=== PATIENT | female | born 1960 | race African-American/Black ===

== ENCOUNTER 2018-05-24 10:10 | Observation (INO) | payer OTHER ==
[2018-05-24] MEDS ORDERED: Albuterol Sulfate 2.5 mg/3 ml Neb ONE (10:37)
[2018-05-24 10:54] LABS: #Eosinphils 0.1 thou/uL (0.0-0.7); #Lymphocytes 1.3 thou/uL (1.20-3.40); #Monocytes 1.3 thou/uL (0.11-0.59); #Neutrophils 10.1 thou/uL (1.40-6.50); %Basophils 0.1 % (0.0-1.0); %Neutrophils 78.9 % (42.0-75.0); Hemoglobin 12.6 g/dL (12.0-16.0); Mean Corpuscular HGB CONC 30.1 g/dL (32.0-36.0); Mean Corpuscular Hemoglobin 31.3 pg (27.0-31.0); Mean Platelet Volume 7.9 fL (7.4-10.4); Platelet Count 441 thou/uL (130-400); RBC Distribution Width 12.8 % (11.5-14.5); Red Blood Cell (RBC) Count 4.02 mill/uL (4.20-5.40); White Blood Cell (WBC) Count 12.7 thou/uL (4.8-10.8)
[2018-05-24 11:12] LABS: ALT (SGPT) 40 U/L (8-55); AST (SGOT) 44 U/L (5-34); Albumin 3.1 g/dL (3.5-5.0); Alkaline Phosphatase 136 U/L (40-150); BUN (Urea Nitrogen) 10 mg/dL (9.8-20.1); Calc. Creatinine Clearance 0 mL/min (70-130); Calcium 10.2 mg/dL (7.8-10.44); Estimated GFR-MDRD Greater than 90; Globulin 5.2 g/dL (2.4-3.5); Glucose 114 mg/dL (70-105); Protein, Total 8.3 g/dL (6.0-8.3)
[2018-05-24 11:13] LABS: Band 16 % (5-11); Lymphocytes 8 % (21-51); MDiff Complete? YES; Monocytes 6 % (0-10); Myelocyte 1 % (0-0); Neutrophil 69 % (42-75); PLT Morphology Comment Appears Increased; Toxic Granulation SLIGHT
[2018-05-24 11:23] LABS: Anion Gap 19 mmol/L (10-20); Carbon Dioxide 31 mmol/L (22-29); Chloride 94 mmol/L (98-107); Potassium 3.7 mmol/L (3.5-5.1); Sodium 140 mmol/L (136-145)
[2018-05-24] MEDS ORDERED: Magnesium 2 GM/50 ML BAG (IN WATER) ONE (11:25)
[2018-05-24] MEDS ORDERED: cefTRIAXone\\ROCEPHIN 1 GM VIAL ONE (12:00)
[2018-05-24] MEDS ORDERED: Azithromycin 250 MG TAB ONE (12:00)
--- NOTE | 2018-05-24 12:21 | RAD ---
CHEST ONE VIEW: HISTORY: Dyspnea. COMPARISON: Chest radiograph from 08/12/2014 FINDINGS: There are extensive air space opacities, which are somewhat nodular in appearance throughout the lung s. This is more confluent in the lung bases. No pneumothorax. No large effusion. IMPRESSION: Extensive air space opacities throughout the lungs, worse in the lower lobes, concerning for developi ng bronchopneumonia. Followup after treatment recommended. POS: BRADEN
--- NOTE | 2018-05-24 12:49 | PDOC.FPRHP ---
- History of Present Illness Chief Complaint: SOB History of Present Illness: 57 yo AAF with PMH of severe persistent asthma presenting with worsening SOB and productive cough over the last few days. Pt notes a sick contact with a niece who was told she has pneumonia over the weekend. Pt reports subjective fevers, chills, cough productive of white sputum, wheezing, chest tightness and increased work of breathing. Pt tried using an entire albuterol inhaler over the last 2 days with no improvement in symptoms. Pt has a hx of hospitalizations for asthma exacerbations in the past. No history of requiring intubation. Pt denies CP, abdominal pain, NVD, dysuria, rash, or recent travel. ED Course: Rocephin 1g, Azithromycin 500 mg, Mg sulfate 2g, NS 500 CC, Albuterol x1hr - Allergies/Adverse Reactions Allergies Allergy/AdvReac Type Severity Reaction Status Date / Time fluticasone propionate Allergy Verified 08/12/14 10:13 [From Flonase] - Home Medications Comments: Montelukast, HCTZ, Proventil, Advair - History PMHx: 1. Severe persistent asthma on 2L O2 via NC chronically 2. EDUARDO 3. OA 4. HTN 5. Restless leg syndrome PSHx: 1. CS x3 FHx: Noncontributory Social: Denies tobacco, EtOH, or illicit drug use. and lives in [place]. - Review of Systems General: reports: fever/chills, night sweats. denies: weight/appetite/sleep changes Respiratory: reports: cough, congestion, shortness of breath, exercise intolerance Cardiovascular: denies: chest pain, palpitation, orthopnea Gastrointestinal: denies: nausea, vomiting, diarrhea, abdominal pain Genitourinary: denies: dysuria, polyuria Skin: denies: rashes Musculoskeletal: denies: pain, arthritis/arthralgias Neurological: denies: syncope, seizure Psychological: denies: anxiety, depression - Vital signs BP: 132/80 HR: 132 RR: 30 Tmax: 98.6 oral Pox: 100% on 3L Wt: 64kg - Physical Exam Constitutional: NAD HEENT: normocephalic and atraumatic, EOMI, conjunctiva clear Neck: supple, no JVD Chest: no-tender to palpation Heart: normal S1/S2 (tachycardic, normal rhythm), pulses present Lungs: other (shallow increased respiratory effort, coarse inspiratory breath sounds all [place], diffuse BL expiratory wheezes with prolonged respiratory effort, no retractions) Abdomen: soft, non-tender, bowel sounds present Musculoskeletal: normal structure, ROM grossly normal Neurological: no focal deficit Skin: no rash/lesions, no jaundice Psychiatric: normal mood and affect, good judgment and insight FMR H&P: Results - Labs Result Diagrams: 05/24/18 10:34 05/24/18 10:34 Lab results: WBC 12.7 thou/uL (4.8-10.8) H 05/24/18 10:34 Hgb 12.6 g/dL (12.0-16.0) 05/24/18 10:34 Hct 41.9 % (36.0-47.0) 05/24/18 10:34 MCV 104.0 fL (78.0-98.0) H 05/24/18 10:34 Plt Count 441 thou/uL (130-400) H 05/24/18 10:34 Neutrophils % 78.9 % (42.0-75.0) H 05/24/18 10:34 Band Neuts % (Manual) 16 % (5-11) H 05/24/18 10:34 Sodium 140 mmol/L (136-145) 05/24/18 10:34 Potassium 3.7 mmol/L (3.5-5.1) 05/24/18 10:34 Chloride 94 mmol/L (98-107) L 05/24/18 10:34 Carbon Dioxide 31 mmol/L (22-29) H 05/24/18 10:34 BUN 10 mg/dL (9.8-20.1) 05/24/18 10:34 Creatinine 0.68 mg/dL (0.6-1.1) 05/24/18 10:34 Glucose 114 mg/dL (70-105) H 05/24/18 10:34 Calcium 10.2 mg/dL (7.8-10.44) 05/24/18 10:34 Total Bilirubin 1.0 mg/dL (0.2-1.2) 05/24/18 10:34 AST 44 U/L (5-34) H 05/24/18 10:34 ALT 40 U/L (8-55) 05/24/18 10:34 Alkaline Phosphatase 136 U/L (40-150) 05/24/18 10:34 Serum Total Protein 8.3 g/dL (6.0-8.3) 05/24/18 10:34 Albumin 3.1 g/dL (3.5-5.0) L 05/24/18 10:34 - EKG Interpretation EKG: Sinus tachycardia, no ST changes - Radiology Interpretation Chest x-ray Status: image reviewed by me, report reviewed by me (bilateral air space opacities consistent with viral PNA) FMR H&P: A/P - Problem List (1) Asthma exacerbation Current Visit: Yes Status: Acute Code(s): J45.901 - UNSPECIFIED ASTHMA WITH (ACUTE) EXACERBATION Qualifiers: Asthma severity: severe Asthma persistence: persistent Qualified Code(s) : J45.51 - Severe persistent asthma with (acute) exacerbation Assessment and Plan: -Pt presents with worsening cough, SOB, and wheezing consistent with asthma exacerbation likely 2/2 PNA with positive sick contacts. -Bilateral CXR appearance is more consistent with viral PNA and pt only presents with mild leukocytosis. -Pt has been afebrile and tachycardia is likely due to prolonged nebulized breathing treatment in ED. -Pt does not appear septic at this time but will obtain procalcitonin to determine if bacterial etiology is more likely and pt needs to be continued on abx. Pt received Rocephin and Azithromycin in ER. -Admit pt to telemetry observation and continue duonebs q4h with albuterol q2h PRN. Continue baseline oxygen requirement of 2L via NC. Administer Solumedrol 125 mg now and resume prednisone 40 mg in AM. -IVF resuscitation with LR@125 -Flu swab. -Repeat CBC in AM. FULL code PPx: Lovenox for VTE, no GI indicated. (2) Hypovolemia Current Visit: Yes Status: Acute Code(s): E86.1 - HYPOVOLEMIA Assessment and Plan: -IVF per above. - Plan Disposition/LOS: Admit to observation for anticipated length of stay less than two midnights, pending clinical course. Attending Addendum - Attending Addendum Date/Time: 05/24/18 9098 I personally evaluated the patient and discussed the management with Dr. Leiva. I agree with the History, Examination, Assessment and Plan documented above with any addition or exceptions noted below. Patient with history of asthma on O2 2L by CT chronically here for worsening SOB and new sputum production in setting of positive sick contact. She received large amounts of albuterol and Mg in ER and is feeling much improved. She is satting 98% on her home O2 requirement. HR 138 but likely 2/2 beta agonist effect. Her lungs have diffuse course breath sounds with expiratory wheezes and rhonchi with decreased air entry b/l. CXR consistent with patchy and diffuse process. Patient to be admitted for Acute asthma exacerbation without worsening of her chronic hypoxic respiratory failure. Continue nebs, steroids, adjust outpatient meds as needed. Continue O2 supplemenation as needed. Checking PCT to see if there is need for continued abx therapy. Check flu swab. IVF hydrate. Very low suspicion for sepsis at this time.
[2018-05-24] MEDS ORDERED: Ondansetron PF 4 MG/2 ML Vial IVP PRN (13:56)
[2018-05-24] MEDS ORDERED: Ondansetron ODT 4 MG TAB SL PRN (13:56)
[2018-05-24] MEDS ORDERED: Acetaminophen 325 MG TAB PO PRN ×2 (13:56→14:12)
[2018-05-24] MEDS ORDERED: Lactated Ringer's 1,000 ML IV SCH (14:00)
[2018-05-24] MEDS ORDERED: Albuterol Sulfate 2.5 mg/3 ml Neb NEB PRN (14:12)
[2018-05-24] MEDS ORDERED: Ondansetron ODT 4 MG TAB PO PRN (14:12)
[2018-05-24] MEDS ORDERED: methylPREDNISolone Sod Succ/PF 125 MG/2 ML VIAL IVP SCH (14:15)
[2018-05-24] MEDS: Lactated Ringer's 1,000 ML IV SCH ×2 (14:32→22:40)
[2018-05-24 14:54] VITALS: BMI 26.0
[2018-05-24] MEDS ORDERED: Prevnar 13-Val Conj/PF 0.5 ML SYRINGE IM ONE (15:00)
[2018-05-24 17:23] LABS: Amphetamine Not Detected (NotDetected); Barbiturates Screen Not Detected (NotDetected); Benzodiazepine Screen Not Detected (NotDetected); Cocaine Metabolite Screen Not Detected (NotDetected); Medtox Control Line Valid? VALID (VALID); Medtox Reader # READER 1; Methadone Not Detected (NotDetected); Methamphetamine Not Detected (NotDetected); Opiate Screen Not Detected (NotDetected); Oxycodone Screen Not Detected (NotDetected); Phencyclidine (PCP) Not Detected (NotDetected); THC/Cannabinoid Screen Not Detected (NotDetected); Tricyclic Screen Not Detected (NotDetected)
[2018-05-24] MEDS: Guaifenesin DM 100-10/5 ML UDCUP PO PRN (20:43)
[2018-05-24] MEDS: Montelukast Sodium 10 mg Tablet PO SCH (20:44)
[2018-05-25 05:28] LABS: #Eosinphils 0.2 thou/uL (0.0-0.7); #Lymphocytes 1.1 thou/uL (1.20-3.40); #Monocytes 0.9 thou/uL (0.11-0.59); #Neutrophils 7.6 thou/uL (1.40-6.50); %Basophils 0.1 % (0.0-1.0); %Eosinophils 1.9 % (0.0-10.0); %Monocytes 9.1 % (0.0-10.0); Hemoglobin 10.6 g/dL (12.0-16.0); Mean Corpuscular HGB CONC 30.4 g/dL (32.0-36.0); Mean Corpuscular Hemoglobin 31.1 pg (27.0-31.0); Mean Platelet Volume 7.5 fL (7.4-10.4); Platelet Count 414 thou/uL (130-400); White Blood Cell (WBC) Count 9.7 thou/uL (4.8-10.8)
--- NOTE | 2018-05-25 06:19 | PDOC.FM ---
- Subjective Subjective: Pt reports feeling better from yesterday, mildly SOB, chest tightness improved. Doesn't quite feel back to baseline. - Objective MAR Reviewed: Yes Vital Signs & Weight: Vital Signs (12 hours) Temp Pulse Resp BP Pulse Ox 05/25/18 04:00 97.6 F 107 H 20 130/78 93 L 05/25/18 03:05 94 L 05/25/18 02:39 16 05/24/18 22:17 106 H 16 05/24/18 19:58 97.8 F 117 H 20 134/91 H 94 L 05/24/18 18:20 116 H 12 93 L Weight Weight 65.907 kg I&O: 05/23/18 05/24/18 05/25/18 06:59 06:59 06:59 Intake Total 2465 Output Total 200 Balance 2265 Result Diagrams: 05/25/18 05:06 05/25/18 05:06 <Krystina Chris - Last Filed: 05/25/18 08:54> - Objective Vital Signs & Weight: Vital Signs (12 hours) Temp Pulse Resp BP Pulse Ox 05/25/18 08:49 92 L 05/25/18 08:43 97.7 F 110 H 22 H 134/84 86 L 05/25/18 06:39 117 H 16 92 L 05/25/18 04:00 97.6 F 107 H 20 130/78 93 L 05/25/18 03:05 94 L 05/25/18 02:39 16 Weight Weight 65.907 kg I&O: 05/24/18 05/25/18 05/26/18 06:59 06:59 06:59 Intake Total 2465 Output Total 200 Balance 2265 Result Diagrams: 05/25/18 05:06 05/25/18 05:06 <Brandon Lewis - Last Filed: 05/25/18 11:31> Phys Exam - Physical Examination Constitutional: NAD HEENT: PERRLA, moist MMs rhonchi in b/l lower lungs, dec breath sounds Cardiovascular: RRR, no significant murmur Gastrointestinal: soft, non-tender, no distention Musculoskeletal: no edema, pulses present Neurological: moves all 4 limbs Psychiatric: normal affect, A&O x 3 Skin: no rash, normal turgor <Krystina Chris - Last Filed: 05/25/18 08:54> Dx/Plan (1) Asthma exacerbation Code(s): J45.901 - UNSPECIFIED ASTHMA WITH (ACUTE) EXACERBATION Status: Acute Qualifiers: Asthma severity: severe Asthma persistence: persistent Qualified Code(s) : J45.51 - Severe persistent asthma with (acute) exacerbation (2) Hypertension Code(s): I10 - ESSENTIAL (PRIMARY) HYPERTENSION Status: Acute - Plan Plan: 47 yo F with severe, persistent asthma here with asthma exacerbation Asthma exacerbation 2/2 viral pneumonia -CXR consistent with viral more than bacterial etiology. Also procal 0.18 supporting this. No need to continue abx -After overnight obs, sepsis criteria not met-white count resolved, afebrile , not tachypneic -Non-hypoxic on 3L, will wean to home 2L as tolerated -Space out duoneb frequency to q6hr Chronic, severe, persistent asthma -continue home meds -will verify outpt meds to make sure appropriate upon d/c Chronic hypertension -resume home meds Hypovolemia, RESOLVED -Can d/c IVF, continue oral hydration dvt ppx: lovenox dispo: If able to wean to home O2 @2L can d/c home today Discussed with Dr. Lewis <Krystina Chris - Last Filed: 05/25/18 08:54> (1) Asthma exacerbation Code(s): J45.901 - UNSPECIFIED ASTHMA WITH (ACUTE) EXACERBATION Status: Acute Qualifiers: Asthma severity: severe Asthma persistence: persistent Qualified Code(s) : J45.51 - Severe persistent asthma with (acute) exacerbation (2) Hypovolemia Code(s): E86.1 - HYPOVOLEMIA Status: Acute <Brandon Lewis - Last Filed: 05/25/18 11:31> Attending Addendum - Attending Addendum Date/Time: 05/25/18 1130 I personally evaluated the patient and discussed the management with Dr. Chris. I agree with the History, Examination, Assessment and Plan documented above with any addition or exceptions noted below. Patient improved. Feels near baseline but not quite. Continue nebs, steroids for asthma exacerbation in likely viral PNA setting. PCT reassuring of no bacterial etiology. On baseline O2 requirement. Consider home today or tomorrow depending on clinical course. <Brandon Lewis - Last Filed: 05/25/18 11:31>
[2018-05-25] MEDS: Lactated Ringer's 1,000 ML IV SCH ×3 (07:07→23:33)
[2018-05-25 07:41] LABS: Anion Gap 11 mmol/L (10-20); BUN (Urea Nitrogen) 8 mg/dL (9.8-20.1); Calc. Creatinine Clearance 111 mL/min (70-130); Calcium 9.3 mg/dL (7.8-10.44); Carbon Dioxide 34 mmol/L (22-29); Chloride 97 mmol/L (98-107); Estimated GFR-MDRD Greater than 90; Glucose 99 mg/dL (70-105); Potassium 3.5 mmol/L (3.5-5.1); Sodium 138 mmol/L (136-145)
[2018-05-25] MEDS: predniSONE 20 MG TAB PO SCH (08:35)
[2018-05-25] MEDS: Enoxaparin Sodium 40 MG/0.4 ML SYRINGE SC SCH (08:36)
[2018-05-25] MEDS: Hydrochlorothiazide 25 MG TAB PO SCH (08:36)
[2018-05-25] MEDS: Guaifenesin DM 100-10/5 ML UDCUP PO PRN ×3 (08:36→20:12)
[2018-05-25] MEDS: Mometasone/Formoterol 120 PUFF INHALER INH SCH (18:41)
[2018-05-25] MEDS: Montelukast Sodium 10 mg Tablet PO SCH (20:11)
[2018-05-26 05:29] LABS: #Eosinphils 0.1 thou/uL (0.0-0.7); #Lymphocytes 1.3 thou/uL (1.20-3.40); #Monocytes 0.7 thou/uL (0.11-0.59); #Neutrophils 5.6 thou/uL (1.40-6.50); %Basophils 0.6 % (0.0-1.0); %Eosinophils 1.4 % (0.0-10.0); %Lymphocytes 16.9 % (21.0-51.0); %Monocytes 8.6 % (0.0-10.0); %Neutrophils 72.5 % (42.0-75.0); Mean Corpuscular HGB CONC 31.1 g/dL (32.0-36.0); Mean Corpuscular Hemoglobin 31.4 pg (27.0-31.0); Mean Platelet Volume 7.4 fL (7.4-10.4); Platelet Count 448 thou/uL (130-400); RBC Distribution Width 12.8 % (11.5-14.5); Red Blood Cell (RBC) Count 3.19 mill/uL (4.20-5.40); White Blood Cell (WBC) Count 7.7 thou/uL (4.8-10.8)
--- NOTE | 2018-05-26 06:18 | PDOC.FM ---
- Subjective Subjective: No acute events overnight. Patient denies SOB, chest tightness. Was able to walk around room without problems yesterday, reports feeling back to baseline and says she feels ready to go home. - Objective MAR Reviewed: Yes Vital Signs & Weight: Vital Signs (12 hours) Temp Pulse Resp BP BP Pulse Ox 05/26/18 04:00 97.8 F 97 22 H 168/77 H 94 L 05/26/18 00:23 100 14 05/25/18 20:00 98.2 F 105 H 18 143/78 H 92 L 05/25/18 19:47 98.2 F 105 H 18 143/78 H 92 L 05/25/18 18:31 115 H 16 Weight Weight 69.173 kg I&O: 05/24/18 05/25/18 05/26/18 06:59 06:59 06:59 Intake Total 2465 3678 Output Total 200 2100 Balance 2265 1578 Result Diagrams: 05/26/18 04:55 05/26/18 04:55 <Krystina Chris - Last Filed: 05/26/18 08:39> - Objective Vital Signs & Weight: Vital Signs (12 hours) Temp Pulse Resp BP Pulse Ox 05/26/18 07:20 104 H 24 H 159/88 H 05/26/18 06:27 90 L 05/26/18 06:26 102 H 20 90 L 05/26/18 06:25 102 H 20 90 L 05/26/18 04:00 97.8 F 97 22 H 168/77 H 94 L 05/26/18 00:23 100 14 Weight Weight 69.173 kg I&O: 05/25/18 05/26/18 05/27/18 06:59 06:59 06:59 Intake Total 2465 3678 Output Total 200 2100 Balance 2265 1578 Result Diagrams: 05/26/18 04:55 05/26/18 04:55 <Brandon Lewis - Last Filed: 05/26/18 10:56> Phys Exam - Physical Examination Constitutional: NAD Neck: full ROM diffuse rhonchi, dec. breath sounds Cardiovascular: RRR, no significant murmur Gastrointestinal: soft, non-tender, no distention Neurological: non-focal, moves all 4 limbs Psychiatric: normal affect, A&O x 3 Skin: no rash, normal turgor <Krystina Chris - Last Filed: 05/26/18 08:39> Dx/Plan (1) Asthma exacerbation Code(s): J45.901 - UNSPECIFIED ASTHMA WITH (ACUTE) EXACERBATION Status: Acute Qualifiers: Asthma severity: severe Asthma persistence: persistent Qualified Code(s) : J45.51 - Severe persistent asthma with (acute) exacerbation (2) Hypertension Code(s): I10 - ESSENTIAL (PRIMARY) HYPERTENSION Status: Acute (3) Hypokalemia Code(s): E87.6 - HYPOKALEMIA Status: Acute - Plan Plan: 47 yo F with severe, persistent asthma here with asthma exacerbation Asthma exacerbation 2/2 viral pneumonia -Much improved today, on 3L of O2, duonebs q6hr -Continue steroid course to completion -Continue duo nebs, wean O2 as tolerated (at baseline on 2L at home) Hypokalemia -Likely 2/2 to albuterol from duoneb treatments -Will replace K+ Chronic, severe, persistent asthma -On appropriate regimen: singulair, max dose advair, albuterol rescue INH Chronic hypertension -Continue HCTZ & monitor BPs Hypovolemia, RESOLVED -Can d/c IVF, continue oral hydration dvt ppx: lovenox dispo: Patient feels back to baseline today. Will d/c home with vial refill for duonebs (has nebulizer equipment at home). Expect good clinical course since exacerbation likely triggered by viral PNA from sick contacts. Discussed wtih Dr. Lewis <Krystina Chris - Last Filed: 05/26/18 08:39> (1) Asthma exacerbation Code(s): J45.901 - UNSPECIFIED ASTHMA WITH (ACUTE) EXACERBATION Status: Acute Qualifiers: Asthma severity: severe Asthma persistence: persistent Qualified Code(s) : J45.51 - Severe persistent asthma with (acute) exacerbation (2) Hypovolemia Code(s): E86.1 - HYPOVOLEMIA Status: Acute <Brandon Lewis - Last Filed: 05/26/18 10:56> Attending Addendum - Attending Addendum Date/Time: 05/26/18 1055 I personally evaluated the patient and discussed the management with Dr. Chris. I agree with the History, Examination, Assessment and Plan documented above with any addition or exceptions noted below. Patient feels well. She requests to go home. Breathing back to baseline and near her home O2 requirement. Stable for discharge with close outpatient follow up. <Brandon Lewis - Last Filed: 05/26/18 10:56>
[2018-05-26] MEDS: Mometasone/Formoterol 120 PUFF INHALER INH SCH (06:26)
[2018-05-26 07:42] LABS: Anion Gap 12 mmol/L (10-20); BUN (Urea Nitrogen) 7 mg/dL (9.8-20.1); Calc. Creatinine Clearance 118 mL/min (70-130); Calcium 9.3 mg/dL (7.8-10.44); Carbon Dioxide 37 mmol/L (22-29); Chloride 93 mmol/L (98-107); Estimated GFR-MDRD Greater than 90; Glucose 86 mg/dL (70-105); Potassium 3.1 mmol/L (3.5-5.1); Sodium 139 mmol/L (136-145)
[2018-05-26] MEDS ORDERED: Potassium Chloride 20 MEQ TAB PO SCH ×2 (08:45→17:00)
[2018-05-26] MEDS: Guaifenesin DM 100-10/5 ML UDCUP PO PRN (09:36)
[2018-05-26] MEDS: Hydrochlorothiazide 25 MG TAB PO SCH (09:38)
[2018-05-26] MEDS: Enoxaparin Sodium 40 MG/0.4 ML SYRINGE SC SCH (09:38)
[2018-05-26] MEDS: predniSONE 20 MG TAB PO SCH (09:38)
[2018-05-26 13:46] VITALS: BP 164/86; TEMP 99.2
--- NOTE | 2018-05-26 23:41 | DIS-2 ---
DATE OF ADMISSION: 05/24/2018 DATE OF DISCHARGE: 05/26/2018 RESIDENT: Krystina Chris MD, PGY-1 ADMITTING ATTENDING: Brandon Carmona MD DISCHARGE ATTENDING: Brandon Carmona MD CONSULTATIONS: None. PROCEDURES: None. PRIMARY DIAGNOSES: 1. Acute asthma exacerbation secondary to viral pneumonia. 2. Severe chronic persistent asthma. SECONDARY DIAGNOSES: 1. Hypertension. 2. Obstructive sleep apnea. 3. Osteoarthritis. 4. Macrocytic anemia. DISCHARGE MEDICATIONS: 1. Robitussin DM 15 mL oral q.4. hours p.r.n. for cough. 2. DuoNeb vials with use of nebulizer 4 times daily. 3. Prednisone 40 mg q.a.m. with breakfast, 2 days' duration. 4. Proventil HFA 1 puff q.4 hours p.r.n. shortness of breath or wheezing. 5. Singulair 10 mg p.o. at bedtime. 6. HCTZ 25 mg p.o. daily. 7. Advair Diskus 500/50 one inhalation twice daily HISTORY OF PRESENT ILLNESS AND HOSPITAL COURSE: Ms. Pablo is a 57-year-old pleasant -[place] female with acute asthma exacerbation requiring increase in her baseline home O2 (normally on 2L). History was pertinent for sick family contact with pneumonia. CXR was suggestive of bronchopneumonia and lab workup revealed no signs of systemic infection nor bacterial etiology. Patient improved quickly with supportive care reaching her baseline at discharge. DISPOSITION: Stable. DISCHARGE INSTRUCTIONS: 1. Location: Home. 2. Diet: Heart healthy. 3. Activity: Ad samantha. 4. Followup: Follow up with PCP in 7-10 days. ERI
== END 2018-05-26 13:57 | disposition home or self-care (01) ==
LOC: ERS 10:10 → 2NO 14:07 → INTOOBSV 14:07
PROVIDERS: ADMIT Student in an Organized Health Care Education/Training Program; ATTEND Student in an Organized Health Care Education/Training Program
DX: J12.9 Viral pneumonia, unspecified (principal); J45.51 Severe persistent asthma with (acute) exacerbation; G47.33 Obstructive sleep apnea (adult) (pediatric); M19.90 Unspecified osteoarthritis, unspecified site; I10 Essential (primary) hypertension; G25.81 Restless legs syndrome; E86.1 Hypovolemia; D53.9 Nutritional anemia, unspecified; Z79.899 Other long term (current) drug therapy; Z88.8 Allergy status to other drugs, medicaments and biological substances; Z99.81 Dependence on supplemental oxygen
CPT/HCPCS: 36415; 71045; 80048; 80053; 80306; 83605; 84145; 85025; 87040; 87804; 90471; 90670; 93005; 94640; 94644; 96361; 96365; 96367; 96372; G0009; G0378; J0696; J1650; J7506; J7611; J7620

== ENCOUNTER 2018-08-14 12:58 | Emergency (ER) | payer OTHER | END 2018-08-14 15:24 | disposition left against medical advice (07) | LOC: ERS 12:58 | DX: Z53.21 Procedure and treatment not carried out due to patient leaving prior to being seen by health care provider (principal) ==

== ENCOUNTER 2018-09-30 21:00 | Emergency (ER) | payer OTHER | END 2018-09-30 21:22 | disposition left against medical advice (07) | LOC: ERS 21:00 | DX: Z53.21 Procedure and treatment not carried out due to patient leaving prior to being seen by health care provider (principal) ==

== ENCOUNTER 2019-01-08 08:59 | Emergency (ER) | payer OTHER ==
[2019-01-08] MEDS ORDERED: methylPREDNISolone Sod Succ/PF 125 MG/2 ML VIAL ONE (09:26)
[2019-01-08 09:28] LABS: #Lymphocytes 0.4 thou/uL (1.20-3.40); #Monocytes 0.3 thou/uL (0.11-0.59); %Basophils 0.7 % (0.0-1.0); %Lymphocytes 11.2 % (21.0-51.0); %Monocytes 8.4 % (0.0-10.0); %Neutrophils 78.7 % (42.0-75.0); Hemoglobin 12.6 g/dL (12.0-16.0); Mean Corpuscular HGB CONC 33.6 g/dL (32.0-36.0); Mean Corpuscular Hemoglobin 33.2 pg (27.0-31.0); Mean Platelet Volume 7.8 fL (7.4-10.4); Platelet Count 138 thou/uL (130-400); Red Blood Cell (RBC) Count 3.78 mill/uL (4.20-5.40); White Blood Cell (WBC) Count 3.8 thou/uL (4.8-10.8)
--- NOTE | 2019-01-08 09:34 | RAD ---
RADIOGRAPH CHEST 1 VIEW: DATE: 01/08/2019 HISTORY: 58-year-old female with cough and chest pain FINDINGS: There are no airspace densities, pulmonary edema, pneumothorax, or cardiomegaly. The lateral costophr enic angles are sharp. IMPRESSION: No acute cardiopulmonary findings.
[2019-01-08 09:49] LABS: ALT (SGPT) 50 U/L (8-55); AST (SGOT) 52 U/L (5-34); Alkaline Phosphatase 70 U/L (40-150); Anion Gap 16 mmol/L (10-20); BUN (Urea Nitrogen) 7 mg/dL (9.8-20.1); Bilirubin, Total 1.4 mg/dL (0.2-1.2); CK (CPK) 233 U/L (29-168); Calc. Creatinine Clearance 0 mL/min (70-130); Calcium 9.4 mg/dL (7.8-10.44); Carbon Dioxide 26 mmol/L (22-29); Chloride 96 mmol/L (98-107); Estimated GFR-MDRD Greater than 90; Globulin 3.3 g/dL (2.4-3.5); Glucose 93 mg/dL (70-105); Protein, Total 7.3 g/dL (6.0-8.3); Sodium 135 mmol/L (136-145)
== END 2019-01-08 10:50 | disposition home or self-care (01) ==
LOC: ERS 08:59
DX: J45.901 Unspecified asthma with (acute) exacerbation (principal); E87.6 Hypokalemia
CPT/HCPCS: 71045; 80053; 82550; 83880; 84484; 85025; 93005; 94640; 96374; J2930; J7620

== ENCOUNTER 2019-02-22 19:30 | Outpatient (CLI) | payer OTHER | END 2019-02-22 19:31 | disposition home or self-care (01) | LOC: SLEEPLAB 19:30 | PROVIDERS: ATTEND Internal Medicine Critical Care Medicine | DX: G47.33 Obstructive sleep apnea (adult) (pediatric) (principal); J45.909 Unspecified asthma, uncomplicated; G47.00 Insomnia, unspecified; G47.10 Hypersomnia, unspecified; R09.02 Hypoxemia; R06.83 Snoring | CPT/HCPCS: 95810 ==

== ENCOUNTER 2019-04-30 19:09 | Emergency (ER) | payer OTHER ==
[2019-04-30 19:41] LABS: #Basophils 0.1 thou/uL (0.0-0.2); #Eosinphils 0.4 thou/uL (0.0-0.7); #Lymphocytes 1.6 thou/uL (1.20-3.40); #Monocytes 0.5 thou/uL (0.11-0.59); #Neutrophils 3.4 thou/uL (1.40-6.50); %Basophils 0.9 % (0.0-1.0); %Monocytes 8.8 % (0.0-10.0); %Neutrophils 57.4 % (42.0-75.0); Hemoglobin 14.3 g/dL (12.0-16.0); Mean Corpuscular HGB CONC 33.8 g/dL (32.0-36.0); Mean Corpuscular Hemoglobin 33.4 pg (27.0-31.0); Mean Corpuscular Volume 98.8 fL (78.0-98.0); Mean Platelet Volume 7.8 fL (7.4-10.4); Platelet Count 263 thou/uL (130-400); RBC Distribution Width 12.4 % (11.5-14.5); Red Blood Cell (RBC) Count 4.27 mill/uL (4.20-5.40); White Blood Cell (WBC) Count 5.9 thou/uL (4.8-10.8)
[2019-04-30 19:59] LABS: ALT (SGPT) 38 U/L (8-55); AST (SGOT) 55 U/L (5-34); Albumin 4.6 g/dL (3.5-5.0); Alkaline Phosphatase 97 U/L (40-110); Anion Gap 12 mmol/L (10-20); BUN (Urea Nitrogen) 11 mg/dL (9.8-20.1); Bilirubin, Total 0.5 mg/dL (0.2-1.2); Calc. Creatinine Clearance 0 mL/min (70-130); Calcium 10.3 mg/dL (7.8-10.44); Carbon Dioxide 28 mmol/L (22-29); Chloride 100 mmol/L (98-107); Estimated GFR-MDRD Greater than 90; Globulin 3.7 g/dL (2.4-3.5); Glucose 89 mg/dL (70-105); Protein, Total 8.3 g/dL (6.0-8.3); Sodium 136 mmol/L (136-145)
== END 2019-04-30 21:18 | disposition left against medical advice (07) ==
LOC: ERS 19:09
DX: Z53.21 Procedure and treatment not carried out due to patient leaving prior to being seen by health care provider (principal)
CPT/HCPCS: 36415; 80053; 84484; 85025; 93005

== ENCOUNTER 2020-06-08 13:21 | Emergency (ER) | payer OTHER | END 2020-06-08 14:19 | disposition home or self-care (01) | LOC: ERS 13:21 | DX: B02.9 Zoster without complications (principal); E78.5 Hyperlipidemia, unspecified; I10 Essential (primary) hypertension | CPT/HCPCS: 99282 ==

== ENCOUNTER 2022-01-15 13:44 | Outpatient (CLI) | payer OTHER | END 2022-01-15 13:45 | disposition home or self-care (01) | LOC: BICMAMMO 13:44 | PROVIDERS: ATTEND Nurse Practitioner Family | DX: Z12.31 Encounter for screening mammogram for malignant neoplasm of breast (principal); M17.0 Bilateral primary osteoarthritis of knee | CPT/HCPCS: 77067 ==

== ENCOUNTER 2022-01-21 08:02 | Outpatient (CLI) | payer OTHER | END 2022-01-21 08:03 | disposition home or self-care (01) | LOC: BICMAMMO 08:02 | PROVIDERS: ATTEND Nurse Practitioner Family | DX: R92.8 Other abnormal and inconclusive findings on diagnostic imaging of breast (principal) | CPT/HCPCS: G0279 ==